=== PATIENT | female | born 1995 | race Two or more races ===

== ENCOUNTER 2023-02-05 12:45 | Inpatient (IN) | payer OTHER ==
[~2023-02-05] VITALS: Ht 165.1 cm; Wt 111.1 kg
[2023-02-08] MEDS ORDERED: PRENATAL CAPLE1 EAC1 PO (06:38)
== END 2023-02-10 13:49 | disposition home or self-care (01) | DRG 768 ==
LOC: LDR 02-08 06:23 → OB/GYN 02-08 06:23
PROVIDERS: ADMIT Specialist; ATTEND Specialist
PROC: 10E0XZZ Delivery of Products of Conception, External Approach (ICD-10-PCS; principal; 2023-02-08)
PROC: 0UQC7ZZ Repair Cervix, Via Natural or Artificial Opening (ICD-10-PCS; 2023-02-08)
PROC: 0HQ9XZZ Repair Perineum Skin, External Approach (ICD-10-PCS; 2023-02-08)
PROC: 0UQG7ZZ Repair Vagina, Via Natural or Artificial Opening (ICD-10-PCS; 2023-02-08)
PROC: 0UQMXZZ Repair Vulva, External Approach (ICD-10-PCS; 2023-02-08)
PROC: 4A1HXCZ Monitoring of Products of Conception, Cardiac Rate, External Approach (ICD-10-PCS; 2023-02-08)
DX: O70.0 First degree perineal laceration during delivery (principal); Z37.0 Single live birth; O71.3 Obstetric laceration of cervix; O71.82 Other specified trauma to perineum and vulva; Z3A.39 39 weeks gestation of pregnancy; Z20.822 Contact with and (suspected) exposure to COVID-19